=== PATIENT | male | born 1975 | race Caucasian/White ===

== ENCOUNTER 2023-03-20 09:31 | Emergency (ER) | payer SELFPAY ==
[~2023-03-20] VITALS: Ht 172.7 cm; Wt 87.1 kg
[~2023-03-20 09:31] MED LIST: Z RISPERDAL; Z XANAX; Z.0.DILANTIN100 MG; Z.0.LOPRESSOR100 MG; Z.2.METFORMIN HCL500
[2023-03-20] MEDS ORDERED: DONNATAL/LIDOCAINE/MAALOX 30 ML SUSP PO ONE (10:00)
[2023-03-20] MEDS ORDERED: Morphine 4mg INJECTION 4 MG/ML INJ IV ONE (10:00)
[2023-03-20] MEDS ORDERED: IOPAMIDOL 370 MG/ML 100 ML INFUS..BTL INJ ONE (10:15)
[2023-03-20 11:30] VITALS: O2SAT 99
[2023-03-20] MEDS ORDERED: METOPROLOL TAR100 MG PO (11:35)
[2023-03-20] MEDS ORDERED: METOPROLOL SUCC25 MG PO (12:12)
[2023-03-20] MEDS ORDERED: NEURONTIN400 MG PO (12:12)
[2023-03-20] MEDS ORDERED: SUCRALFATE1 GM PO (12:12)
[2023-03-20] MEDS ORDERED: PROTONIX20 MG PO (12:12)
[2023-03-20] MEDS ORDERED: METHOCARBAMOL750 MG PO (12:12)
[2023-03-20] MEDS ORDERED: PROMETHAZINE HC25 M1 PO (12:12)
[2023-03-20] MEDS ORDERED: FLOMAX0.4 MG PO (12:12)
[2023-03-20] MEDS ORDERED: METFORMIN HCL500 MG PO (12:12)
[2023-03-20] MEDS ORDERED: DICYCLOMINE HCL10 MG PO (12:12)
== END 2023-03-20 11:40 | disposition home or self-care (01) ==
LOC: FSED 09:34
DX: G44.009 Cluster headache syndrome, unspecified, not intractable (principal); I10 Essential (primary) hypertension; R10.11 Right upper quadrant pain; R94.31 Abnormal electrocardiogram [ECG] [EKG]
CPT/HCPCS: 74177; 80048; 80053; 80076; 85025; 93005; 96374; 99284; J2270; Q9967

== ENCOUNTER 2023-10-08 16:55 | Emergency (ER) | payer OTHER ==
[~2023-10-08] VITALS: Ht 172.7 cm; Wt 87.1 kg
[2023-10-08 16:55] VITALS: O2SAT 100
[~2023-10-08 16:55] MED LIST changes: +DICYCLOMINE HCL10 MG PO; +FLOMAX0.4 MG PO; +METFORMIN HCL500 MG PO; +METHOCARBAMOL750 MG PO; +METOPROLOL SUCC25 MG PO; +METOPROLOL TAR100 MG PO; +NEURONTIN400 MG PO; +PROMETHAZINE HC25 M1 PO; +PROTONIX20 MG PO; +SUCRALFATE1 GM PO
[2023-10-08] MEDS ORDERED: Morphine 4mg INJECTION 4 MG/ML INJ IM ONE (17:30)
[2023-10-08] MEDS ORDERED: CYCLOBENZAPRINE HCL 10 MG TAB PO ONE (17:30)
[2023-10-08] MEDS ORDERED: PROMETHAZINE HCL (IM) 25 MG/ML VIAL IM ONE ×2 (17:45→17:46)
[2023-10-08] MEDS ORDERED: CYCLOBENZAPRINE HCL 10 MG TAB ONE (17:46)
[2023-10-08] MEDS ORDERED: Morphine 4mg INJECTION 4 MG/ML INJ ONE (17:46)
== END 2023-10-08 18:05 | disposition home or self-care (01) ==
LOC: FSED 17:00
DX: M54.50 Low back pain, unspecified (principal); M54.16 Radiculopathy, lumbar region; E11.9 Type 2 diabetes mellitus without complications; K27.9 Peptic ulcer, site unspecified, unspecified as acute or chronic, without hemorrhage or perforation; I10 Essential (primary) hypertension; I50.9 Heart failure, unspecified; G40.909 Epilepsy, unspecified, not intractable, without status epilepticus; I25.2 Old myocardial infarction; Z85.038 Personal history of other malignant neoplasm of large intestine; Z95.5 Presence of coronary angioplasty implant and graft
CPT/HCPCS: 99283; J2270; J2550

== ENCOUNTER 2024-03-22 16:53 | Emergency (ER) | payer OTHER ==
[~2024-03-22] VITALS: Ht 172.7 cm; Wt 75.9 kg
[~2024-03-22 16:53] MED LIST changes: +CLINDAMYCIN HC150 MG PO; +LYRICA100 MG PO
[2024-03-22 17:00] VITALS: O2SAT 98
[2024-03-22] MEDS ORDERED: OMEPRAZOLE40 MG PO (17:16)
[2024-03-22] MEDS ORDERED: METFORMIN HCL500 M2 PO (17:16)
[2024-03-22] MEDS ORDERED: DIAZEPAM5 MG PO (17:16)
[2024-03-22] MEDS ORDERED: KEPPRA500 MG PO (17:16)
[2024-03-22] MEDS ORDERED: DICYCLOMINE HCL20 MG PO (17:16)
[2024-03-22] MEDS ORDERED: TOPROL XL100 MG PO (17:16)
[2024-03-22] MEDS ORDERED: DILANTIN100 MG PO (17:16)
[2024-03-22] MEDS ORDERED: ULTRAM 50MG50 MG PO (17:25)
[2024-03-22] MEDS ORDERED: DOXYCYCLINE HY100 MG PO (17:30)
[2024-03-22] MEDS ORDERED: HYDROCODONE/APAP 10MG-325MG TAB PO ONE (17:30)
[2024-03-22] MEDS ORDERED: HYDROCODON-ACE1 EAC9 PO ×2 (17:31→17:33)
[2024-03-22] MEDS: HYDROCODONE/APAP 5MG-325MG TAB PO ONE (17:44)
== END 2024-03-22 17:42 | disposition home or self-care (01) ==
LOC: FSED 16:57
DX: M79.675 Pain in left toe(s) (principal); L03.032 Cellulitis of left toe; E11.9 Type 2 diabetes mellitus without complications; I10 Essential (primary) hypertension; G40.909 Epilepsy, unspecified, not intractable, without status epilepticus; J44.9 Chronic obstructive pulmonary disease, unspecified; I50.9 Heart failure, unspecified; I25.10 Atherosclerotic heart disease of native coronary artery without angina pectoris; F41.9 Anxiety disorder, unspecified; I25.2 Old myocardial infarction; Z95.5 Presence of coronary angioplasty implant and graft; Z85.038 Personal history of other malignant neoplasm of large intestine; F17.210 Nicotine dependence, cigarettes, uncomplicated
CPT/HCPCS: 99283

== ENCOUNTER 2024-06-17 09:42 | Observation (INO) | payer OTHER ==
[~2024-06-17] VITALS: Ht 172.7 cm; Wt 90.7 kg
[~2024-06-17 09:42] MED LIST changes: +DIAZEPAM5 MG PO; +DICYCLOMINE HCL20 MG PO; +DILANTIN100 MG PO; +DOXYCYCLINE HY100 MG PO; +HYDROCODON-ACE1 EAC9 PO; +KEPPRA500 MG PO; +METFORMIN HCL500 M2 PO; +OMEPRAZOLE40 MG PO; +TOPROL XL100 MG PO; +ULTRAM 50MG50 MG PO
[2024-06-17 09:48] VITALS: TEMP 98
[2024-06-17] MEDS: FAMOTIDINE 20 MG/2 ML VIAL IV STA (10:10)
[2024-06-17] MEDS: ASPIRIN 325 MG TAB PO ONE (10:10)
[2024-06-17 11:07] VITALS: PULSE 62; RESP 18
[2024-06-17] MEDS ORDERED: SODIUM CHLORIDE FLUSH 10 ML SYR INJ PRN (11:15)
[2024-06-17] MEDS ORDERED: ONDANSETRON HCL INJ 2MG/ML 2ML 2 MG/ML VIAL IV PRN (11:15)
[2024-06-17] MEDS ORDERED: ASPIRIN 81 MG CHEW TAB PO ONE (11:15)
[2024-06-17] MEDS ORDERED: Morphine 2mg Syringe 2 MG/ML SYR IV PRN (11:15)
[2024-06-17] MEDS: NITROGLYCERIN 0.4 MG SUBL SL ONE (11:39)
[2024-06-17 11:42] VITALS: BP 134/84; PULSE 59; RESP 18; O2SAT 96
[2024-06-18] MEDS ORDERED: ASPIRIN 81 MG CHEW TAB PO SCH (09:00)
[2024-06-18] MEDS ORDERED: ASPIRIN 81 MG ENTERIC COATED PO SCH (09:00)
== END 2024-06-17 12:30 | disposition left against medical advice (07) ==
LOC: FSED 09:48 → ERHOLD 11:07
PROVIDERS: ADMIT Internal Medicine; ATTEND Internal Medicine
DX: R07.9 Chest pain, unspecified (principal); I25.10 Atherosclerotic heart disease of native coronary artery without angina pectoris; Z95.5 Presence of coronary angioplasty implant and graft; Z72.0 Tobacco use; E11.9 Type 2 diabetes mellitus without complications; G40.909 Epilepsy, unspecified, not intractable, without status epilepticus; F41.9 Anxiety disorder, unspecified; I25.2 Old myocardial infarction; K21.9 Gastro-esophageal reflux disease without esophagitis
CPT/HCPCS: 71046; 80053; 80307; 81003; 83880; 84484; 85025; 85610; 93005; 99284; G0378

== ENCOUNTER 2024-07-27 19:18 | Emergency (ER) | payer OTHER | END 2024-07-27 19:36 | disposition left against medical advice (07) | LOC: FSED 19:36 | DX: N23 Unspecified renal colic (principal) ==